=== PATIENT | male | born 1960 ===

== ENCOUNTER 2017-06-30 10:20 | Day surgery (SDC) | payer OTHER ==
[2017-06-30] MEDS: FENTANYL 100MCG/2ML SOL ONE (10:48)
[2017-06-30] MEDS ORDERED: ROCURONIUM BROMIDE 10 MG/ML SOL IV ONE (11:01)
[2017-06-30] MEDS ORDERED: SUCCINYLCHOLINE CHLORIDE 20 MG/ML SOL IV ONE (11:01)
[2017-06-30] MEDS ORDERED: LIDOCAINE HCL 1% MPF SOL ONE (11:04)
[2017-06-30] MEDS ORDERED: FENTANYL 100MCG/2ML SOL ONE ×2 (11:04→11:42)
[2017-06-30] MEDS ORDERED: PROPOFOL 10 MG/ML EMU IV ONE (11:04)
[2017-06-30] MEDS ORDERED: BUPIVACAINE/EPI 0.5% 10 ML SOL INFIL ONE (11:10)
[2017-06-30] MEDS: BUPIVACAINE/EPI 0.5% 10 ML SOL INFIL ONE (11:40)
[2017-06-30 12:50] VITALS: BP 125/84; PULSE 70; RESP 16; TEMP 98.4; O2SAT 96
== END 2017-06-30 13:35 | disposition home or self-care (01) ==
LOC: SURG 10:20
PROVIDERS: ATTEND Surgery
DX: K61.1 Rectal abscess (principal); K64.4 Residual hemorrhoidal skin tags
CPT/HCPCS: J0330; J3010; J2001; J2704; J3490